=== PATIENT | female | born 1985 | race Caucasian/White ===

== ENCOUNTER 2021-06-09 09:06 | Emergency (ER) | payer OTHER ==
[~2021-06-09] VITALS: Ht 154.9 cm; Wt 79.0 kg
[2021-06-09 09:54] VITALS: BP 142/86
[2021-06-09] MEDS ORDERED: IBUPROFEN 400MG TABLET PO ONE (10:00)
[2021-06-09] MEDS ORDERED: IBUP-2028 PO (10:37)
== END 2021-06-09 12:03 | disposition home or self-care (01) ==
LOC: ER 09:06
DX: S93.492A Sprain of other ligament of left ankle, initial encounter (principal); M79.662 Pain in left lower leg; X58.XXXA Exposure to other specified factors, initial encounter; Y93.89 Activity, other specified; Y92.018 Other place in single-family (private) house as the place of occurrence of the external cause
CPT/HCPCS: 73590; 73610; 81025; 99284; Z7610

== ENCOUNTER 2021-07-12 19:39 | Emergency (ER) | payer OTHER ==
[~2021-07-12] VITALS: Ht 154.9 cm; Wt 76.0 kg
[~2021-07-12 19:39] MED LIST: IBUP-2028 PO
[2021-07-13 00:21] LABS: BASOPHILS % 0.2 % (0.0-2.0); EOSINOPHILS % 1.3 % (0.0-5.0); HEMATOCRIT. 40.7 % (36.0-48.0); HEMOGLOBIN. 13.8 g/dL (12.0-16.0); LYMPHOCYTES % 45.4 % (20.0-50.0); MEAN CORPUSCULAR HEMOGLOBIN 29.8 pg (28.0-32.0); MEAN PLATELET VOLUME 9.8 fl (7.4-10.4); MONOCYTES % 6.2 % (2.0-8.0); NEUTROPHILS % 46.9 % (40.0-76.0); PLATELET 186 x1000/uL (130-400); RED BLOOD CELL COUNT 4.62 mill/uL (4.2-5.4); RED CELL DISTRIBUTION WIDTH 12.9 % (11.6-14.6)
[2021-07-13 00:23] LABS: CHLORIDE 111 mEq/L (98-107)
[2021-07-13 03:36] LABS: CLARITY URINE CLEAR (CLEAR); COLOR URINE YELLOW (YELLOW); KETONES URINE NEGATIVE (NEGATIVE); LEUKOCYTE ESTERASE URINE NEGATIVE (NEGATIVE); NITRITE URINE NEGATIVE (NEGATIVE); OCCULT BLOOD URINE NEGATIVE (NEGATIVE); PROTEIN URINE NEGATIVE (NEGATIVE); SPECIFIC GRAVITY URINE 1.021 (1.005-1.030); UROBILINOGEN URINE 0.2 E.U./dL (0.2-1.0)
[2021-07-13] MEDS ORDERED: KETOROLAC 15MG/ML VIAL IV ONE (03:45)
[2021-07-13 05:00] VITALS: BP 117/64
[2021-07-13] MEDS ORDERED: ONDANSETRON HCL 4MG/2ML INJ IV ONE (05:15)
[2021-07-13] MEDS ORDERED: MORPHINE SULFATE 4 MG/ML CPJ (NOT FOR IM USE) IV ONE (05:15)
[2021-07-13] MEDS ORDERED: SODIUM CHLORIDE 0.9% 1,000 ML IV ONE (06:30)
[2021-07-13] MEDS ORDERED: CEFTRIAXONE 1 G PREMIX 50 ML IV ONE (06:30)
== END 2021-07-13 08:10 | disposition short-term general hospital (02) ==
LOC: ER 19:39
DX: R10.31 Right lower quadrant pain (principal); G43.909 Migraine, unspecified, not intractable, without status migrainosus; Z79.899 Other long term (current) drug therapy; Z98.890 Other specified postprocedural states
CPT/HCPCS: 36415; 74176; 80053; 81003; 81025; 83690; 85025; 93005; 96365; 96375; 99285; J0696; J1885; J2270; J2405; J7030

== ENCOUNTER 2022-09-25 19:21 | Emergency (ER) | payer OTHER ==
[~2022-09-25] VITALS: Ht 154.9 cm; Wt 78.0 kg
[2022-09-25] MEDS ORDERED: ERYT-141 MT (23:07)
[2022-09-25] MEDS ORDERED: IBUP-2029 MT (23:07)
[2022-09-25] MEDS ORDERED: HYDROCODONE/ACETAMINOPHEN 5/325MG TABLET PO ONE (23:15)
[2022-09-25 23:22] VITALS: BP 124/83
== END 2022-09-25 23:24 | disposition home or self-care (01) ==
LOC: ER 19:22
DX: H66.91 Otitis media, unspecified, right ear (principal); G43.909 Migraine, unspecified, not intractable, without status migrainosus; Z98.890 Other specified postprocedural states
CPT/HCPCS: 81025; 99282

== ENCOUNTER 2023-05-09 17:38 | Emergency (ER) | payer OTHER ==
[~2023-05-09] VITALS: Ht 160 cm; Wt 82.0 kg
[~2023-05-09 17:38] MED LIST changes: +ERYT-141 MT; +IBUP-2029 MT
[2023-05-09 17:49] VITALS: TEMP 98.6; O2SAT 100
[2023-05-09] MEDS ORDERED: KETOROLAC 30MG/ML VIAL IM ONE (20:00)
[2023-05-09] MEDS ORDERED: DIPHENHYDRAMINE 25MG CAPSULE PO ONE (20:00)
[2023-05-09] MEDS ORDERED: PROCHLORPERAZINE MALEATE 10MG TABLET PO ONE (20:00)
[2023-05-09] MEDS ORDERED: NAPR-681 MT (22:12)
[2023-05-09] MEDS ORDERED: LIDO700A15 TP (22:12)
[2023-05-09 22:21] VITALS: BP 110/62; PULSE 61; RESP 16
== END 2023-05-09 22:22 | disposition home or self-care (01) ==
LOC: ER 17:38
DX: G43.909 Migraine, unspecified, not intractable, without status migrainosus (principal); Z98.890 Other specified postprocedural states
CPT/HCPCS: 81025; 96372; 99283; Q0163; Q0164; J1885; Z7610